=== PATIENT | female | born 1940 | race Caucasian/White ===

== ENCOUNTER → 2016-06-19 | Outpatient (REF) | payer MEDICARE ==
[~2016-06-19] MED LIST: IBUP600T OR; NORCO PO; TYLENOL ES PO; VENL75TA2 PO; Vitamin D PO
== END ==
LOC: M LAB REF 16:40
PROVIDERS: ATTEND Internal Medicine Medical Oncology
DX: C18.9 Malignant neoplasm of colon, unspecified (principal)

== ENCOUNTER → 2016-06-20 | Outpatient (CLI) | payer MEDICARE ==
[~2016-06-20] MED LIST changes: +GASTROGRAFIN SOLUTION 30ML (Q9963) As Ordered ONE; +ISOVUE-370 76% 100ML VIAL (Q9967) As Ordered ONE
--- NOTE | 2016-06-20 13:19 | REP ---
Clinical: History of metastatic colon cancer with chest pain. Technique: Axial contrast enhanced images from the thoracic inlet to the upper abdomen using 100 ml Isovue 370 intravenous contrast material with coronal and sagittal re-formations. Comparison: 10/01/2015. Findings: Mild biapical and right lateral subpleural scarring is unchanged. Lung mandel are otherwise well aerated and clear. No acute consolidation, nodule or mass lesion. No pleural effusion/reaction. No pneumothorax. Tracheobronchial tree is patent. No significant axillary, hilar, or mediastinal adenopathy. Thoracic aorta, heart and pericardium are relatively normal / stable. Small hiatal hernia. Musculoskeletal structures without focal osseous abnormality. Impression: Mild by apical and right subpleural scarring unchanged. No acute mediastinal or pleuroparenchymal process. Stable hiatal hernia. Signed by Tho Gipson MD 06/20/2016 01:11 P
--- NOTE | 2016-06-20 13:26 | REP ---
Clinical: Metastatic colon cancer with abdominal pain. Technique: Axial contrast enhanced images from the lung bases to the pubic symphysis using oral and 100 ml Isovue 370 intravenous contrast material with precontrast and delayed images of the abdomen as well as coronal and sagittal re-formations. Comparison: 10/25/2014. Findings: Lung bases clear. Visualized heart and pericardium stable/normal. Small hiatal hernia again noted. Liver, spleen, pancreas, gallbladder, bilateral adrenal glands and kidneys are normal / stable. Sub centimeter cyst in the posterior segment right lobe of the liver, splenic calcification, and mild hyperplastic changes to the left adrenal gland are all stable. The enteric system is without obstruction or acute inflammatory process. There is evidence for prior resection and anastomosis at the rectosigmoid colon. Pelvis demonstrates normal bladder and evidence for prior hysterectomy. No ascites. No intraperitoneal or retroperitoneal adenopathy. No mass lesion. Musculoskeletal structures demonstrate age-related changes without focal osseous abnormality. Impression: No acute intra-abdominal or pelvic pathology appreciated. Evidence for resection and anastomosis at the rectosigmoid appears stable. No free fluid, adenopathy, or mass lesion. Signed by Tho Gipson MD 06/20/2016 01:18 P
== END ==
LOC: M RAD 11:24
PROVIDERS: ATTEND Internal Medicine Medical Oncology
DX: C18.9 Malignant neoplasm of colon, unspecified (principal); R10.2 Pelvic and perineal pain; R07.89 Other chest pain
CPT/HCPCS: 71260; 74178; Q9963; Q9967

== ENCOUNTER → 2016-12-24 | Outpatient (REF) | payer OTHER, MEDICARE ==
[~2016-12-24] MED LIST changes: -GASTROGRAFIN SOLUTION 30ML (Q9963) As Ordered ONE; -ISOVUE-370 76% 100ML VIAL (Q9967) As Ordered ONE
== END ==
LOC: M LAB REF 12:59
PROVIDERS: ATTEND Internal Medicine Medical Oncology
DX: C34.90 Malignant neoplasm of unspecified part of unspecified bronchus or lung (principal)

== ENCOUNTER → 2017-07-06 | Outpatient (REF) | payer OTHER ==
[2017-07-07 09:13] LABS: CARCINOEMBRYONIC ANTIGEN 2.7 NG/ML (<2.5)
== END ==
LOC: M LAB REF 11:51
DX: C18.9 Malignant neoplasm of colon, unspecified (principal)
CPT/HCPCS: 82378

== ENCOUNTER 2017-07-14 07:00 | Day surgery (SDC) | payer OTHER ==
[2017-07-14] MEDS: LR 1,000 ML IV (07:15)
[2017-07-14] MEDS ORDERED: PROPOFOL 500 MG/50 ML VIAL As Ordered (08:38)
[2017-07-14] MEDS ORDERED: LIDOCAINE 2% INJ 100 MG/5 ML SDV (FOR ANES.) As Ordered (08:47)
== END 2017-07-14 09:47 | disposition home or self-care (01) ==
LOC: M OPP 07:00
DX: Z12.11 Encounter for screening for malignant neoplasm of colon (principal); Z85.038 Personal history of other malignant neoplasm of large intestine; K57.30 Diverticulosis of large intestine without perforation or abscess without bleeding; K31.7 Polyp of stomach and duodenum; R13.10 Dysphagia, unspecified; K21.9 Gastro-esophageal reflux disease without esophagitis; M17.9 Osteoarthritis of knee, unspecified; F41.9 Anxiety disorder, unspecified; F32.9 Major depressive disorder, single episode, unspecified; R51 Headache; J44.9 Chronic obstructive pulmonary disease, unspecified; M54.9 Dorsalgia, unspecified; Z79.899 Other long term (current) drug therapy; Z88.8 Allergy status to other drugs, medicaments and biological substances; N80.9 Endometriosis, unspecified; Z78.0 Asymptomatic menopausal state; Z90.710 Acquired absence of both cervix and uterus; Z85.118 Personal history of other malignant neoplasm of bronchus and lung; Z90.49 Acquired absence of other specified parts of digestive tract; Z87.891 Personal history of nicotine dependence
CPT/HCPCS: G0105

== ENCOUNTER 2018-09-02 13:15 | Day surgery (SDC) | payer MEDICARE ==
[~2018-09-02] VITALS: Ht 165.1 cm; Wt 68.0 kg
[~2018-09-02 13:15] MED LIST changes: +BALANCED SALT IRRIGATION SOLUTION 500ML BAG (FOR OR EYE MACHINE) As Ordered ONE; +CEFUROXIME 1MG/0.1ML INTRACAMERAL INJ As Ordered ONE; +CVS500CA5 PO; +DUOVISC (0.50ML VISCOAT/0.55ML PROVISC) OPHTH KIT As Ordered ONE; +LIDOCAINE 0.75%/EPINEPHRINE 0.025% IN BSS 1ML SYR INTRACAMERAL (OR ONLY) As Ordered ONE; +NAPR220C14 PO; +NEXI40CA PO; +OFLOXACIN 0.3 % (OCUFLOX) OPTH SOL 5ML OS ONE; +PHENYLEPHRINE 2.5% OPHTH SOL 2ML OS ONE; +POVIDONE-IODINE 5% OPHTH PREP SOL 30ML As Ordered ONE; +PRESCAP PO; +PROAAER10 INH; +PROPARACAINE 0.5% OPHTH SOL 15ML OS ONE; +TROPICAMIDE 1% OPHTH SOLN 2ML OS ONE; +TYLE500T78 PO; +VITA100067 PO; +VITA500T3 PO; +VITAD1000T PO
[2018-09-02] MEDS ORDERED: MIDAZOLAM INJ 2 MG/2 ML VIAL (J2250) As Ordered ONE (13:54)
[2018-09-02] MEDS ORDERED: fentaNYL 100 MCG/2 ML INJECTION (J3010) As Ordered ONE (13:54)
[2018-09-02 15:25] VITALS: BP 138/68
--- NOTE | 2018-09-03 07:48 | RO ---
DATE OF PROCEDURE: 09/02/2018 PREOPERATIVE DIAGNOSIS: 1. Visually significant nuclear sclerotic cataract left eye. POSTOPERATIVE DIAGNOSIS: 1. Visually significant nuclear sclerotic cataract left eye. PROCEDURE: 1. Cataract extraction with use of phacoemulsification and placement of intraocular lens, AUT00 22.0 D, left eye. SURGEON: Jose Juan Moy DO CRIMINAL PROFILER: None. ANESTHESIA: Local with monitored anesthesia care (MAC). COMPLICATIONS: None. POSTOPERATIVE CONDITION: Stable. INDICATIONS FOR SURGERY: 1. Blurred vision affecting patients activities of daily living. DESCRIPTION OF PROCEDURE: The patient was seen in the preoperative area and properly identified. The correct operative eye was identified and marked. The patient received topical anesthetic, antibiotics, and topical dilating drops. The patient was then transferred to the operating room. The correct side was re-identified, and a time-out was performed. The eye was prepped and draped in a sterile fashion. The eyelids were isolated with Tegaderm tape, and the lids were held open with an adjustable speculum. A 1.0 mm paracentesis incision was made. Intraocular preservative-free Shugarcaine was then injected into the anterior chamber. Viscoelastic was then injected into the anterior chamber through the paracentesis. Using a 2.4 mm sharp-tipped keratome, the anterior chamber was entered via a temporal clear cornea incision. A continuous curvilinear capsulorrhexis was created with Utrata forceps. Hydrodissection was performed with balanced salt solution (BSS) on a blunt cannula until the nucleus was able to rotate freely. The crystalline lens was phacoemulsified and aspirated. Irrigation/aspiration was used to remove the cortical material. Cohesive viscoelastic was placed into the capsular bag to deepen it. The implant was placed into the capsular bag and allowed to unfold. Placement was confirmed by visualizing the anterior capsulorrhexis. Irrigation/aspiration was used to remove the viscoelastic. The clear corneal incision was hydrated with BSS on a blunt cannula. The lens was well positioned. The incisions were then tested for leaks and found to be negative. The eye was then palpated for appropriate pressure and adjusted accordingly with BSS. The eyelid speculum was then carefully removed. A shield was placed over the eye. The patient tolerated the procedure well and was discharged to the recovery unit in a stable condition.
== END 2018-09-02 15:35 | disposition home or self-care (01) ==
LOC: M SDC 13:15
PROVIDERS: ATTEND Ophthalmology
DX: H25.12 Age-related nuclear cataract, left eye (principal); J44.9 Chronic obstructive pulmonary disease, unspecified; K21.9 Gastro-esophageal reflux disease without esophagitis; F32.9 Major depressive disorder, single episode, unspecified; F41.9 Anxiety disorder, unspecified; Z87.891 Personal history of nicotine dependence; Z88.2 Allergy status to sulfonamides; Z85.038 Personal history of other malignant neoplasm of large intestine; Z92.21 Personal history of antineoplastic chemotherapy; Z79.899 Other long term (current) drug therapy
CPT/HCPCS: 66984; J2250; J3010; V2632

== ENCOUNTER 2018-09-16 09:29 | Day surgery (SDC) | payer MEDICARE ==
[~2018-09-16] VITALS: Ht 165.1 cm; Wt 68.9 kg
[~2018-09-16 09:29] MED LIST changes: +ACETAMINOPHEN 325 MG TAB PO PRN; +OFLOXACIN 0.3 % (OCUFLOX) OPTH SOL 5ML OD ONE; -OFLOXACIN 0.3 % (OCUFLOX) OPTH SOL 5ML OS ONE; +PHENYLEPHRINE 2.5% OPHTH SOL 2ML OD ONE; -PHENYLEPHRINE 2.5% OPHTH SOL 2ML OS ONE; +PROPARACAINE 0.5% OPHTH SOL 15ML OD ONE; -PROPARACAINE 0.5% OPHTH SOL 15ML OS ONE; +TROPICAMIDE 1% OPHTH SOLN 2ML OD ONE; -TROPICAMIDE 1% OPHTH SOLN 2ML OS ONE
[2018-09-16] MEDS ORDERED: MIDAZOLAM INJ 2 MG/2 ML VIAL (J2250) As Ordered ONE (10:53)
[2018-09-16] MEDS ORDERED: fentaNYL 100 MCG/2 ML INJECTION (J3010) As Ordered ONE (10:54)
[2018-09-16 11:50] VITALS: BP 127/61
[2018-09-16] MEDS ORDERED: TRIMETHOBENZAMIDE 300 MG CAP PO PRN (12:00)
[2018-09-16] MEDS ORDERED: ONDANSETRON 4MG/2ML VIAL (J2405) IV PRN (12:00)
--- NOTE | 2018-09-17 08:27 | RO ---
DATE OF PROCEDURE: 09/16/2018 PREOPERATIVE DIAGNOSIS: 1. Visually significant nuclear sclerotic cataract right eye. POSTOPERATIVE DIAGNOSIS: 1. Visually significant nuclear sclerotic cataract right eye. PROCEDURE: 1. Cataract extraction with use of phacoemulsification and placement of intraocular lens, AU00T0, 22.0 D, right eye. SURGEON: Jose Juan Moy DO CLIENT SERVICE EXECUTIVE: None. ANESTHESIA: Local with monitored anesthesia care (MAC). COMPLICATIONS: None. POSTOPERATIVE CONDITION: Stable. INDICATIONS FOR SURGERY: 1. Blurred vision affecting patients activities of daily living. DESCRIPTION OF PROCEDURE: The patient was seen in the preoperative area and properly identified. The correct operative eye was identified and marked. The patient received topical anesthetic, antibiotics, and topical dilating drops. The patient was then transferred to the operating room. The correct side was re-identified, and a time-out was performed. The eye was prepped and draped in a sterile fashion. The eyelids were isolated with Tegaderm tape, and the lids were held open with an adjustable speculum. A 1.0 mm paracentesis incision was made. Intraocular preservative-free Shugarcaine was then injected into the anterior chamber. Viscoelastic was then injected into the anterior chamber through the paracentesis. Using a 2.4 mm sharp-tipped keratome, the anterior chamber was entered via a temporal clear cornea incision. A continuous curvilinear capsulorrhexis was created with Utrata forceps. Hydrodissection was performed with balanced salt solution (BSS) on a blunt cannula until the nucleus was able to rotate freely. The crystalline lens was phacoemulsified and aspirated. Irrigation/aspiration was used to remove the cortical material. Cohesive viscoelastic was placed into the capsular bag to deepen it. The implant was placed into the capsular bag and allowed to unfold. Placement was confirmed by visualizing the anterior capsulorrhexis. Irrigation/aspiration was used to remove the viscoelastic. The clear corneal incision was hydrated with BSS on a blunt cannula. The lens was well positioned. The incisions were then tested for leaks and found to be negative. The eye was then palpated for appropriate pressure and adjusted accordingly with BSS. The eyelid speculum was then carefully removed. A shield was placed over the eye. The patient tolerated the procedure well and was discharged to the recovery unit in a stable condition. edited: 09/20/2018 1411 meghna DUNN
== END 2018-09-16 12:11 | disposition home or self-care (01) ==
LOC: M SDC 09:29
PROVIDERS: ATTEND Ophthalmology
DX: H25.11 Age-related nuclear cataract, right eye (principal); E05.90 Thyrotoxicosis, unspecified without thyrotoxic crisis or storm; J44.9 Chronic obstructive pulmonary disease, unspecified; K21.9 Gastro-esophageal reflux disease without esophagitis; F32.9 Major depressive disorder, single episode, unspecified; Z88.2 Allergy status to sulfonamides; Z79.899 Other long term (current) drug therapy; Z85.038 Personal history of other malignant neoplasm of large intestine
CPT/HCPCS: 66984; J2250; J3010; V2632

== ENCOUNTER → 2018-12-10 | Outpatient (REF) | payer MEDICARE ==
[~2018-12-10] MED LIST changes: -ACETAMINOPHEN 325 MG TAB PO PRN; -BALANCED SALT IRRIGATION SOLUTION 500ML BAG (FOR OR EYE MACHINE) As Ordered ONE; -CEFUROXIME 1MG/0.1ML INTRACAMERAL INJ As Ordered ONE; +CHOL100029 PO; +CYAN500T8 PO; -DUOVISC (0.50ML VISCOAT/0.55ML PROVISC) OPHTH KIT As Ordered ONE; -LIDOCAINE 0.75%/EPINEPHRINE 0.025% IN BSS 1ML SYR INTRACAMERAL (OR ONLY) As Ordered ONE; -OFLOXACIN 0.3 % (OCUFLOX) OPTH SOL 5ML OD ONE; -PHENYLEPHRINE 2.5% OPHTH SOL 2ML OD ONE; -POVIDONE-IODINE 5% OPHTH PREP SOL 30ML As Ordered ONE; -PROPARACAINE 0.5% OPHTH SOL 15ML OD ONE; -TROPICAMIDE 1% OPHTH SOLN 2ML OD ONE; -VITA500T3 PO; -VITAD1000T PO
[2018-12-10 14:08] LABS: BASO % 0.6 % (0.0-1.0); HEMATOCRIT 43.5 % (36.0-47.0); HEMOGLOBIN 14.1 g/dl (12.0-15.5); LYMPH # 1.6 10^3/uL (1.5-5.0); LYMPH % 25.1 % (24.0-44.0); MEAN CORPUSCULAR HEMOGLOBIN 29.1 pg (27.0-33.0); MEAN CORPUSCULAR HGB CONC 32.4 g/dl (32.0-36.5); MEAN CORPUSCULAR VOLUME 89.7 fl (80.0-96.0); MONO # 0.4 10^3/uL (0.0-0.8); MONO % 5.6 % (0.0-5.0); NEUTROPHILS # 4.4 10^3/uL (1.5-8.5); NEUTROPHILS % 68.5 % (36.0-66.0); PLATELET COUNT, AUTOMATED 298 10^3/uL (150-450); RED BLOOD COUNT 4.85 10^6/uL (4.00-5.40); WHITE BLOOD COUNT 6.4 10^3/uL (4.0-10.0)
[2018-12-10 14:27] LABS: ALBUMIN 4.1 GM/DL (3.2-5.2); ALT/SGPT 42 U/L (12-78); BILIRUBIN,TOTAL 0.4 MG/DL (0.2-1.0); BLOOD UREA NITROGEN 15 MG/DL (7-18); CARBON DIOXIDE LEVEL 27 MEQ/L (21-32); CHLORIDE LEVEL 105 MEQ/L (98-107); CREATININE FOR GFR 0.67 MG/DL (0.55-1.30); FOLATE > 24.0 NG/ML; GLOMERULAR FILTRATION RATE > 60.0 (>39); GLUCOSE, FASTING 97 MG/DL (70-100); POTASSIUM SERUM 4.4 MEQ/L (3.5-5.1); RHEUMATOID FACTOR QUANT < 10.0 IU/ML (<15.0); SODIUM LEVEL 140 MEQ/L (136-145); TOTAL PROTEIN 7.1 GM/DL (6.4-8.2); VITAMIN B12 LEVEL 386 PG/ML
[2018-12-10 14:54] LABS: ERYTHROCYTE SEDIMENTATION RATE 21 mm/hr (0-30)
[2018-12-10 15:38] LABS: HEMOGLOBIN A1c 5.5 %
[2018-12-14 10:18] LABS: DRVV SCREEN 40.2 SEC
[2018-12-14 13:41] LABS: ALBUMIN % 60.1 % (55.8-66.1); ALPHA-1-GLOBULIN % 4.3 % (2.9-4.9); ALPHA-2-GLOBULINS % 10.1 % (7.1-11.8); BETA-1-GLOBULINS % 6.4 % (4.7-7.2)
[2018-12-14 13:42] LABS: ALBUMIN 4.27 GM/DL (3.29-5.55); ALPHA-1-GLOBULINS 0.31 GM/DL (0.17-0.41); ALPHA-2-GLOBULINS 0.72 GM/DL (0.42-0.99); BETA-1-GLOBULINS 0.45 GM/DL (0.28-0.60); BETA-2-GLOBULINS 0.38 GM/DL (0.19-0.55); BETA-2-GLOBULINS % 5.4 % (3.2-6.5); GAMMA GLOBULIN % 13.7 % (11.1-18.8); GAMMA GLOBULINS 0.97 GM/DL (0.65-1.58)
[2018-12-15 14:19] LABS: ANCA-ATYPICAL <1:20 titer (Neg:<1:20); ANTI DS-DNA AB <1:10 titer (.); ANTINUCLEAR ANTIBODIES DIRECT Negative (Negative); CYTOPLASMIC NEUTROP AB ANCA-C <1:20 titer (Neg:<1:20); PERINUCLEAR AB ANCA-P <1:20 titer (Neg:<1:20); SJOGREN'S ANTI SS-A <0.2 AI (0.0-0.9); SJOGREN'S ANTI SS-B <0.2 AI (0.0-0.9); VITAMIN B1 LEVEL WHOLE BLOOD 184.1 nmol/L (66.5-200.0); VITAMIN B6,PYRIDOXAL PHOSPHATE 7.5 ug/L (2.0-32.8); VITAMIN E(GAMMA TOCOPHEROL) 0.8 mg/L (0.5-4.9)
== END ==
LOC: M LABNEURO 10:09
PROVIDERS: ATTEND Psychiatry & Neurology Neurology
DX: M79.2 Neuralgia and neuritis, unspecified (principal); Z79.899 Other long term (current) drug therapy

== ENCOUNTER → 2019-01-11 | Outpatient (CLI) | payer MEDICARE ==
[~2019-01-11] MED LIST changes: +GASTROGRAFIN SOLUTION 30ML (Q9963) As Ordered ONE; +ISOVUE-370 76% 100ML VIAL (Q9967) As Ordered ONE
--- NOTE | 2019-01-12 13:42 | REP ---
REASON FOR EXAM: History of lung cancer. All priors were reviewed, the latest is 06/20/2016. CONTRAST: 100 mL Isovue 370. Mediastinum and pulmonary sedrick are stable. There is no mass or adenopathy. There are no pleural or pericardial effusions. The imaged osseous structures are unchanged. Evaluation of the lung mandel again shows biapical pleuroparenchymal scarring status quo. There are no new abnormal nodules, masses, or opacities. The lung mandel are stable. IMPRESSION: No acute disease or significant change with findings as described above. Electronically Signed by Addi Mace DO 01/12/2019 04:29 P
--- NOTE | 2019-01-12 13:45 | REP ---
REASON: History of colon cancer. Latest prior for comparison 06/20/2016. CONTRAST: 100 mL Isovue 370. The liver, gallbladder, spleen, pancreas, adrenal glands, and kidneys are unchanged. There is mild stable left adrenal gland nodularity. The abdominal aorta and paraaortic regions are unchanged. There is no adenopathy. The imaged bowel loops and their mesenteries are unremarkable. There is no free fluid or free air. There is no evidence of an intra-abdominal mass or adenopathy. Bone window technique throughout the exam shows spinal degenerative changes status quo. IMPRESSION: No acute intra-abdominal disease or significant change compared to the prior exam. Electronically Signed by Addi Mace DO 01/12/2019 04:29 P
== END ==
LOC: M RAD 16:05
PROVIDERS: ATTEND Internal Medicine Hematology & Oncology
DX: C18.9 Malignant neoplasm of colon, unspecified (principal); C78.01 Secondary malignant neoplasm of right lung; E27.9 Disorder of adrenal gland, unspecified
CPT/HCPCS: 71260; 74160; Q9963; Q9967

== ENCOUNTER → 2019-05-11 | Outpatient (REF) | payer MEDICARE ==
[~2019-05-11] MED LIST changes: -GASTROGRAFIN SOLUTION 30ML (Q9963) As Ordered ONE; -ISOVUE-370 76% 100ML VIAL (Q9967) As Ordered ONE
== END ==
LOC: M LAB REF 16:40
PROVIDERS: ATTEND Internal Medicine
DX: M25.50 Pain in unspecified joint (principal)

== ENCOUNTER 2019-12-01 13:55 | Emergency (ER) | payer MEDICARE ==
[~2019-12-01] VITALS: Ht 165.1 cm; Wt 68.2 kg
[2019-12-01] MEDS ORDERED: VENL75CA47 PO (14:04)
[2019-12-01] MEDS ORDERED: LANS15CA3 PO (14:04)
[2019-12-01 15:43] LABS: BASO % 0.4 % (0.0-1.0); EOS % 0.2 % (0.0-3.0); HEMATOCRIT 42.1 % (36.0-47.0); HEMOGLOBIN 13.8 g/dl (12.0-15.5); LYMPH # 2.4 10^3/uL (1.5-5.0); LYMPH % 24.8 % (24.0-44.0); MEAN CORPUSCULAR HEMOGLOBIN 28.5 pg (27.0-33.0); MEAN CORPUSCULAR HGB CONC 32.8 g/dl (32.0-36.5); MONO % 10.2 % (0.0-5.0); NEUTROPHILS # 6.2 10^3/uL (1.5-8.5); PLATELET COUNT, AUTOMATED 287 10^3/uL (150-450); RED BLOOD COUNT 4.84 10^6/uL (4.00-5.40); WHITE BLOOD COUNT 9.7 10^3/uL (4.0-10.0)
[2019-12-01 16:16] LABS: ALBUMIN 3.9 GM/DL (3.2-5.2); ALT/SGPT 27 U/L (12-78); BILIRUBIN,DIRECT 0.1 MG/DL (0.0-0.2); BILIRUBIN,TOTAL 0.5 MG/DL (0.2-1.0); BLOOD UREA NITROGEN 13 MG/DL (7-18); CARBON DIOXIDE LEVEL 30 MEQ/L (21-32); CHLORIDE LEVEL 101 MEQ/L (98-107); GLOMERULAR FILTRATION RATE > 60.0 (>39); GLUCOSE, FASTING 87 MG/DL (70-100); LIPASE 171 U/L (73-393); POTASSIUM SERUM 3.7 MEQ/L (3.5-5.1); SODIUM LEVEL 135 MEQ/L (136-145); TOTAL PROTEIN 7.4 GM/DL (6.4-8.2)
[2019-12-01] MEDS ORDERED: ISOVUE-370 76% 100ML VIAL As Ordered ONE (16:24)
--- NOTE | 2019-12-01 17:13 | REPVR ---
PROCEDURE INFORMATION: Exam: CT Head Without Contrast Exam date and time: 12/01/2019 4:47 PM Age: 79 years old Clinical indication: Injury or trauma; Fall; Initial encounter; Blunt trauma (contusions or hematomas); Additional info: Head injury; S/P fall TECHNIQUE: Imaging protocol: Computed tomography of the head without contrast. Radiation optimization: All CT scans at this facility use at least one of these dose optimization techniques: automated exposure control; mA and/or kV adjustment per patient size (includes targeted exams where dose is matched to clinical indication); or iterative reconstruction. COMPARISON: No relevant prior studies available. FINDINGS: Brain: No acute intracranial hemorrhage, cerebral edema, or midline shift. Ventricles: No hydrocephalus. Bones/joints: No acute fracture. Sinuses: No acute sinusitis. Mastoid air cells: Visualized mastoid air cells are well aerated. Orbits: The included orbital structures are unremarkable. Soft tissues: Unremarkable. Vasculature: Intravascular contrast is noted from a preceding abdominal CT. IMPRESSION: No acute intracranial abnormality. Electronically signed by: Berlin Rolle On 12/01/2019 17:13:00 PM
--- NOTE | 2019-12-01 17:16 | REPVR ---
PROCEDURE INFORMATION: Exam: CT Abdomen And Pelvis With Contrast Exam date and time: 12/01/2019 3:41 PM Age: 79 years old Clinical indication: Abdominal pain; Additional info: Abdominal pain; HX of CA TECHNIQUE: Imaging protocol: Computed tomography of the abdomen and pelvis with intravenous contrast. Radiation optimization: All CT scans at this facility use at least one of these dose optimization techniques: automated exposure control; mA and/or kV adjustment per patient size (includes targeted exams where dose is matched to clinical indication); or iterative reconstruction. Contrast material: ISOVUE 370; Contrast volume: 100 ml; Contrast route: INTRAVENOUS (IV); COMPARISON: CT ABD PELVIS W/O FOL BY WIT 06/20/2016 12:46 PM FINDINGS: Pleural space: There is focal pleural thickening along the right lateral hemithorax series 301, image 1 which is only partially imaged. It is stable in appearance in comparison to the chest CT of 06/20/2016 and is therefore likely benign. There is stable right hilar lymphadenopathy. Mediastinal space: There is a hiatal hernia. Liver: There are no focal liver lesions. Gallbladder and bile ducts: The gallbladder is unremarkable. Pancreas: The pancreas is normal. Spleen: Spleen is normal appearance other than a probable calcified granuloma. Adrenals: Stable enlargement of the left adrenal gland is apparent without change in appearance in comparison to the 06/20/2016 CT. The right adrenal gland is normal appearance. Kidneys and ureters: The kidneys are unremarkable. Stomach and bowel: The stomach is decompressed and not well assessed.There is no evidence of intestinal obstruction. Surgical anastomosis is seen in the sigmoid colon. Appendix: No evidence of appendicitis. Intraperitoneal space: Unremarkable. No free air. No significant fluid collection. Vasculature: There is no evidence of an infrarenal abdominal aortic aneurysm. The arteries demonstrates diffuse moderate atherosclerotic calcification. Lymph nodes: See "Pleural space" finding. Bladder: There is an abnormal appearance of the urinary bladder with ventral extension superiorly to the left of midline which could be due to congenital anomaly. Is stable in comparison to prior studies. Reproductive: Hysterectomy. Bones/joints: No lytic or sclerotic bone lesions are present other than sclerosis associated with degeneration. Soft tissues: Unremarkable. IMPRESSION: No evidence of metastatic disease. No evidence of urinary tract obstruction or bowel obstruction. Electronically signed by: Katie Singleton On 12/01/2019 17:15:47 PM
--- NOTE | 2019-12-01 17:23 | REPVR ---
PROCEDURE INFORMATION: Exam: CT Cervical Spine Without Contrast Exam date and time: 12/01/2019 4:47 PM Age: 79 years old Clinical indication: Injury or trauma; Fall; Initial encounter; Blunt trauma; Additional info: Head injury; S/P fall TECHNIQUE: Imaging protocol: Computed tomography images of the cervical spine without contrast. Radiation optimization: All CT scans at this facility use at least one of these dose optimization techniques: automated exposure control; mA and/or kV adjustment per patient size (includes targeted exams where dose is matched to clinical indication); or iterative reconstruction. COMPARISON: No relevant prior studies available. FINDINGS: Vertebrae: No acute fracture. Normal alignment. Diffuse degeneration of the uncovertebral and facet joints, disc space narrowing and endplate degeneration. C2-C3: No significant spinal canal stenosis. Moderate narrowing of the left neural foramen. C3-C4: No spinal canal stenosis. Mild narrowing of the left neural foramen. C4-C5: No spinal canal stenosis. Moderate right and mild left neural foraminal narrowing. C5-C6: No significant spinal canal stenosis or neural foraminal narrowing. C6-C7: No significant spinal canal stenosis or neural foraminal narrowing. C7-T1: No significant spinal canal stenosis or neural foraminal narrowing. Soft tissues: No prevertebral soft tissue swelling. Lungs: Pleuroparenchymal scarring at the lung apices. IMPRESSION: No acute fracture or dislocation in the cervical spine. Electronically signed by: Katie Singleton On 12/01/2019 17:23:14 PM
--- NOTE | 2019-12-01 22:44 | REPVR ---
PROCEDURE INFORMATION: Exam: CT Head Without Contrast Exam date and time: 12/01/2019 10:29 PM Age: 79 years old Clinical indication: Injury or trauma; Fall; Initial encounter; Blunt trauma (contusions or hematomas); Additional info: Fall injury; S/P iv contrast TECHNIQUE: Imaging protocol: Computed tomography of the head without contrast. Radiation optimization: All CT scans at this facility use at least one of these dose optimization techniques: automated exposure control; mA and/or kV adjustment per patient size (includes targeted exams where dose is matched to clinical indication); or iterative reconstruction. COMPARISON: CT Head without contrast 12/01/2019 4:47 PM FINDINGS: Brain: There is no acute cortical infarction, intracranial hemorrhage or mass. Ventricles: The ventricles appear mildly enlarged, but not out of proportion to the degree of parenchymal volume loss. Bones/joints: Unremarkable. No acute fracture. Sinuses: There is no significant mucoperiosteal thickening or air-fluid levels in the paranasal sinuses. Mastoid air cells: The middle ear cavities and mastoid air cells are clear. Vasculature: Atherosclerosis. Soft tissues: Unremarkable. IMPRESSION: No acute intracranial findings. Electronically signed by: Katie Singleton On 12/01/2019 22:43:42 PM
[2019-12-01 23:14] VITALS: BP 129/75
[2020-01-04] MEDS ORDERED: CULT10CA4 PO (10:53)
[2020-01-04] MEDS ORDERED: MAALOX PO (10:55)
== END 2019-12-01 23:24 | disposition home or self-care (01) ==
LOC: M ED 13:55
DX: K59.00 Constipation, unspecified (principal); S09.90XA Unspecified injury of head, initial encounter; X58.XXXA Exposure to other specified factors, initial encounter; Y92.89 Other specified places as the place of occurrence of the external cause; J44.9 Chronic obstructive pulmonary disease, unspecified; F33.9 Major depressive disorder, recurrent, unspecified; Z79.899 Other long term (current) drug therapy; Z88.1 Allergy status to other antibiotic agents; Z88.2 Allergy status to sulfonamides
CPT/HCPCS: 36415; 70450; 72125; 74177; 80048; 80076; 81001; 83690; 85025; 87086; 99284; Q9967

== ENCOUNTER → 2019-12-28 | Outpatient (CLI) | payer MEDICARE ==
[~2019-12-28] MED LIST changes: +CULT10CA4 PO; +LANS15CA3 PO; +MAALOX PO; +VENL75CA47 PO
--- NOTE | 2020-01-03 08:45 | REP ---
CHEST CT WITHOUT CONTRAST HISTORY: Lung cancer. Colon cancer and lung cancer. Greater than 50-pack year smoking history. COMPARISON: Chest CT study 01/11/2019 and 06/20/2016. CT FINDINGS: There is no evidence of pleural or pericardial effusion. Vascular calcification is noted. Adrenal glands are normal. Visualized upper abdominal structures show no significant abnormality. Stable mediastinal lymph nodes are seen. No adenopathy. There is left apical and left basilar linear fibrosis. No pulmonary mass or significant nodule is appreciated. There appear to be some surgical clips in the right hilar region. Mild emphysematous changes are present. No endobronchial lesion is seen. IMPRESSION: Evidence of chronic obstructive pulmonary disease (COPD) with areas of fibrosis. No evidence of significant lung nodule, mass, or adenopathy. MTDD
== END ==
LOC: M RAD 12:48
PROVIDERS: ATTEND Internal Medicine Medical Oncology
DX: C34.90 Malignant neoplasm of unspecified part of unspecified bronchus or lung (principal)

== ENCOUNTER 2020-07-24 07:39 | Day surgery (SDC) | payer OTHER ==
[~2020-07-24] VITALS: Ht 165.1 cm; Wt 70.3 kg
[~2020-07-24 07:39] MED LIST changes: +CALC600T57 PO; +CYAN500T14 PO; -CYAN500T8 PO; +META0.52 PO; +OMEP-218
[2020-07-24] MEDS ORDERED: NS 1,000 ML IV ONE (08:05)
[2020-07-24] MEDS ORDERED: LIDOCAINE 2% 100MG/5ML SDV (FOR ANES.) As Ordered ONE (08:47)
[2020-07-24] MEDS ORDERED: propofoL 200 MG/20 ML VIAL As Ordered ONE (08:47)
--- NOTE | 2020-07-24 09:17 | ROOR ---
Patient Name: Maria E Pizarro Procedure Date: 07/24/2020 8:58 AM Date of : 1940 Age: 80 Room: [facility] Gender: Female Note Status: Finalized Procedure: Colonoscopy Indications: High risk colon cancer surveillance: Personal history of colon cancer Providers: DO Koffi Ugalde MD: Maribel Eaton NP Requesting Provider: Medicines: Propofol per Anesthesia Complications: No immediate complications. Procedure: Pre-Anesthesia Assessment: - Prior to the procedure, a History and Physical was performed, and patient medications and allergies were reviewed. The patient is competent. The risks and benefits of the procedure and the sedation options and risks were discussed with the patient. All questions were answered and informed consent was obtained. Patient identification and proposed procedure were verified by the physician, the nurse, the anesthesiologist and the driver service technician in the endoscopy suite. Mental Status Examination: alert and oriented. Airway Examination: normal oropharyngeal airway and neck mobility. Respiratory Examination: clear to auscultation. CV Examination: normal. Prophylactic Antibiotics: The patient does not require prophylactic antibiotics. Prior Anticoagulants: The patient has taken no previous anticoagulant or antiplatelet agents. ASA Grade Assessment: II - A patient with mild systemic disease. After reviewing the risks and benefits, the patient was deemed in satisfactory condition to undergo the procedure. The anesthesia plan was to use monitored anesthesia care (MAC). Immediately prior to administration of medications, the patient was re-assessed for adequacy to receive sedatives. The heart rate, respiratory rate, oxygen saturations, blood pressure, adequacy of pulmonary ventilation, and response to care were monitored throughout the procedure. The physical status of the patient was re-assessed after the procedure. The Colonoscope was introduced through the anus and advanced to the cecum, identified by appendiceal orifice and ileocecal valve. The colonoscopy was performed without difficulty. The patient tolerated the procedure well. Findings: Non-bleeding internal hemorrhoids were found during retroflexion. The hemorrhoids were Grade I (internal hemorrhoids that do not prolapse). A few small-mouthed diverticula were found in the sigmoid colon, descending colon and transverse colon. Impression: - Non-bleeding internal hemorrhoids. - Diverticulosis in the sigmoid colon, in the descending colon and in the transverse colon. - No specimens collected. Recommendation: - Patient has a contact number available for emergencies. The signs and symptoms of potential delayed complications were discussed with the patient. Return to normal activities tomorrow. Written discharge instructions were provided to the patient. - Repeat colonoscopy in 3 - 5 years for surveillance based on personal history of colon cancer. - Return to my office PRN. Procedure Code(s): --- Professional --- G0105, Colorectal cancer screening; colonoscopy on individual at high risk Diagnosis Code(s): --- Professional --- Z85.038, Personal history of other malignant neoplasm of large intestine K64.0, First degree hemorrhoids K57.30, Diverticulosis of large intestine without perforation or abscess without bleeding CPT copyright 2019 [employer]. All rights reserved. The codes documented in this report are preliminary and upon long filler cigar roller machine review may be revised to meet current compliance requirements. Jon Dutta DO 07/24/2020 9:17:22 AM Electronically signed by Jon Dutta DO Number of Addenda: 0 Note Initiated On: 07/24/2020 8:58 AM Estimated Blood Loss: Estimated blood loss: none.
[2020-07-24 09:35] VITALS: BP 130/84
== END 2020-07-24 09:55 | disposition home or self-care (01) ==
LOC: M OPP 07:39
PROVIDERS: ATTEND Surgery
DX: Z12.11 Encounter for screening for malignant neoplasm of colon (principal); Z85.038 Personal history of other malignant neoplasm of large intestine; K57.30 Diverticulosis of large intestine without perforation or abscess without bleeding; K64.0 First degree hemorrhoids; K21.9 Gastro-esophageal reflux disease without esophagitis; J44.9 Chronic obstructive pulmonary disease, unspecified; Z79.899 Other long term (current) drug therapy; Z88.2 Allergy status to sulfonamides; Z85.118 Personal history of other malignant neoplasm of bronchus and lung; Z92.21 Personal history of antineoplastic chemotherapy

== ENCOUNTER → 2020-10-10 | Outpatient (CLI) | payer OTHER ==
--- NOTE | 2020-10-10 16:00 | REPMRS ---
Patient History Patient has history of colorectal cancer at age 71 and is nulliparous.The patient states she has not had a clinical breast exam in over a year. Family history of colorectal cancer at age 75 in father. Patient states no breast complaints today. Patient has signed MRS History Sheet. Digital Woman Screen Mammo: October 10, 2020 - Exam #: [id number] Bilateral CC and MLO view(s) were taken. Technologist: Latonya Dickens Technologist Prior study comparison: July 27, 2019, bilateral digital mammo screening bilat, performed at [facility] [employer]. May 10, 2018, bilateral digital mammo screening bilat, performed at [facility] [employer]. April 07, 2017, bilateral digital mammo screening bilat, performed at [facility]. FINDINGS: The breast tissue is heterogeneously dense. This may lower the sensitivity of mammography. The Volpara volumetric breast density category is: C. There is a moderate amount of heterogeneously dense fibroglandular tissue which is fairly symmetric. There is no interval development of dominant mass, architectural distortion, or grouped microcalcification typical of malignancy. There has been no change in the appearance of the mammogram from the prior studies. 3-D tomosynthesis shows no additional findings. Assessment: BI-RADS/ACR category 1 mammogram. Negative Mammogram. Recommendation Routine screening mammogram of both breasts in 1 year (for women over age 40). This patient's [facility] Lifetime Breast Cancer RIsk is estimated at 2.4 %. This mammogram was interpreted with the aid of an FDA-approved computer-aided dectection system. Electronically Signed By: Brad Harris MD 10/10/20 [id number]
== END ==
LOC: M WHC 13:05
PROVIDERS: ATTEND Physician Assistant Medical
DX: Z12.31 Encounter for screening mammogram for malignant neoplasm of breast (principal)

== ENCOUNTER → 2020-11-06 | Outpatient (REF) | payer OTHER ==
[2020-11-06 17:36] LABS: FOLATE 19.3 NG/ML
== END ==
LOC: M LAB REF 16:20
PROVIDERS: ATTEND Physician Assistant Medical
DX: R41.3 Other amnesia (principal)

== ENCOUNTER → 2021-01-07 | Outpatient (CLI) | payer OTHER ==
[~2021-01-07] MED LIST changes: +D 50CAP2 PO; +EQL50TAB2 PO; -OMEP-218; +OMEP-218 PO
--- NOTE | 2021-01-09 06:28 | REP ---
INDICATION: LUNG METS COMPARISON: 12/28/2019 TECHNIQUE: Axial noncontrast images from the thoracic inlet to the upper abdomen with coronal and sagittal reformations. This CT examination was performed using the following dose reduction techniques: Automated exposure control, adjustment of mA and/or kv according to the patient's size, and use of iterative reconstruction technique. FINDINGS: The bilateral lung mandel again demonstrate age-related interstitial and emphysematous changes with scattered fibro linear scarring and mild bronchiectasis. Patient appears to be status post right middle lobe resection. No acute consolidation, suspicious nodule or mass. No effusion. No pneumothorax. No evidence for significant adenopathy. Further evaluation of the mediastinum demonstrates stable atherosclerotic changes to the thoracic aorta and coronary arteries without aortic aneurysm or cardiomegaly. No pericardial effusion noted. Small hiatal hernia at the gastroesophageal junction again identified. Musculoskeletal structures demonstrate age-related changes without acute osseous abnormality. IMPRESSION: Chronic interstitial and emphysematous changes along with evidence for prior right middle lobe resection. No acute mediastinal or pleuroparenchymal process. Specifically, no evidence for recurrence or metastatic disease. <Electronically signed by Tho Gipson > 01/09/21 0624
== END ==
LOC: M PLAIMG 10:57
PROVIDERS: ATTEND Nurse Practitioner Adult Health
DX: C78.00 Secondary malignant neoplasm of unspecified lung (principal); J43.9 Emphysema, unspecified; J84.9 Interstitial pulmonary disease, unspecified; K44.9 Diaphragmatic hernia without obstruction or gangrene; I70.0 Atherosclerosis of aorta; I25.10 Atherosclerotic heart disease of native coronary artery without angina pectoris; Z90.2 Acquired absence of lung [part of]

== ENCOUNTER → 2021-10-18 | Outpatient (CLI) | payer MEDICARE, OTHER, SELFPAY ==
[~2021-10-18] MED LIST changes: +OMEP-173 PO; -OMEP-218 PO
== END ==
LOC: M WHC 07:32
PROVIDERS: ATTEND Internal Medicine
DX: Z12.31 Encounter for screening mammogram for malignant neoplasm of breast (principal)

== ENCOUNTER → 2022-02-11 | Outpatient (CLI) | payer MEDICARE, OTHER ==
[~2022-02-11] MED LIST changes: +B CO1CAP4 PO
== END ==
LOC: M RAD 10:39
PROVIDERS: ATTEND Internal Medicine Pulmonary Disease
DX: Z12.2 Encounter for screening for malignant neoplasm of respiratory organs (principal); Z87.891 Personal history of nicotine dependence; I70.0 Atherosclerosis of aorta; I25.10 Atherosclerotic heart disease of native coronary artery without angina pectoris; M51.34 Other intervertebral disc degeneration, thoracic region; J43.2 Centrilobular emphysema; J84.9 Interstitial pulmonary disease, unspecified

== ENCOUNTER → 2022-06-19 | Outpatient (CLI) | payer OTHER | LOC: M LAB 10:52 | PROVIDERS: ATTEND Internal Medicine | DX: R00.2 Palpitations (principal) ==

== ENCOUNTER → 2022-10-20 | Outpatient (CLI) | payer OTHER | LOC: M WHC 09:40 | PROVIDERS: ATTEND Physician Assistant Medical | DX: Z12.31 Encounter for screening mammogram for malignant neoplasm of breast (principal); M85.89 Other specified disorders of bone density and structure, multiple sites ==

== ENCOUNTER → 2023-04-03 | Outpatient (CLI) | payer OTHER ==
[~2023-04-03] MED LIST changes: +ALBU8.5H INH; +CALC600T60 PO; +FLUT1BLS8 INH; +VENL37.598 PO
== END ==
LOC: M RAD 16:27
PROVIDERS: ATTEND Physician Assistant Medical
DX: M17.11 Unilateral primary osteoarthritis, right knee (principal)

== ENCOUNTER → 2023-04-28 | Outpatient (CLI) | payer OTHER | LOC: M RAD 16:05 | PROVIDERS: ATTEND Internal Medicine Pulmonary Disease | DX: J43.9 Emphysema, unspecified (principal) ==

== ENCOUNTER → 2023-10-26 | Outpatient (CLI) | payer OTHER ==
[~2023-10-26] MED LIST changes: +CRAN500C11 PO; -CVS500CA5 PO
== END ==
LOC: M WHC 07:57
PROVIDERS: ATTEND Physician Assistant Medical
DX: Z12.31 Encounter for screening mammogram for malignant neoplasm of breast (principal)

== ENCOUNTER → 2024-02-08 | Outpatient (CLI) | payer OTHER ==
[~2024-02-08] MED LIST changes: -CRAN500C11 PO; +CVS500CA5 PO; +VALA500T5; +VITAMIN D PO
== END ==
LOC: M RAD 14:15
PROVIDERS: ATTEND Physician Assistant Medical
DX: H53.8 Other visual disturbances (principal); I65.23 Occlusion and stenosis of bilateral carotid arteries

== ENCOUNTER → 2024-06-07 | Outpatient (CLI) | payer MEDICARE ==
[2024-06-07 15:19] LABS: BASO % 0.6 % (0.0-1.0); HEMATOCRIT 40.4 % (36.0-47.0); HEMOGLOBIN 13.3 g/dl (12.0-15.5); LYMPH # 1.6 10^3/uL (1.5-5.0); LYMPH % 25.8 % (24.0-44.0); MEAN CORPUSCULAR HEMOGLOBIN 30.4 pg (27.0-33.0); MEAN CORPUSCULAR HGB CONC 32.9 g/dl (32.0-36.5); MEAN CORPUSCULAR VOLUME 92.4 fl (80.0-96.0); MONO # 0.5 10^3/uL (0.0-0.8); MONO % 8.2 % (2.0-8.0); NEUTROPHILS % 65.1 % (36.0-66.0); PLATELET COUNT, AUTOMATED 262 10^3/uL (150-450); RED BLOOD COUNT 4.37 10^6/uL (4.00-5.40); WHITE BLOOD COUNT 6.2 10^3/uL (4.0-10.0)
[2024-06-07 15:43] LABS: ALBUMIN 3.6 G/DL (3.2-5.2); ALKALINE PHOSPHATASE 90 U/L (35-104); ALT/SGPT 17 U/L (7.0-40); AST/SGOT 22 U/L (<34); BILIRUBIN,TOTAL 0.5 MG/DL (0.3-1.2); BLOOD UREA NITROGEN 15 MG/DL (9-23); CARBON DIOXIDE LEVEL 29 MMOL/L (20-31); CHLORIDE LEVEL 104 MMOL/L (98-107); CREATININE FOR GFR 0.68 MG/DL (0.55-1.30); GLOMERULAR FILTRATION RATE > 60.0 (>32); GLUCOSE, FASTING 76 MG/DL (74-106); POTASSIUM SERUM 4.4 MMOL/L (3.5-5.1); SODIUM LEVEL 140 MMOL/L (136-145); TOTAL PROTEIN 6.8 G/DL (5.7-8.2)
[2024-06-07 15:45] LABS: FOLATE > 24.0 NG/ML (>5.4); THYROID STIMULATING HORMONE 3.687 uIU/ML (0.55-4.78); VITAMIN B12 LEVEL 825 PG/ML (211-911)
[2024-06-07 15:52] LABS: HEMOGLOBIN A1c 5.1 % (4.0-6.0)
[2024-06-08 09:22] LABS: T P ELECTROPHORESIS SO 6.7 g/dL (6.1-8.1)
[2024-06-09 07:26] LABS: ALBUMIN SPEP 4.2 g/dL (3.8-4.8); ALPHA-1-GLOBULINS SO 0.3 g/dL (0.2-0.3); ALPHA-2-GLOBULINS SO 0.6 g/dL (0.5-0.9); BETA 2 GLOBULIN 0.3 g/dL (0.2-0.5); BETA-GLOBULIN SO 0.4 g/dL (0.4-0.6); GAMMA GLOBULINS SO 0.9 g/dL (0.8-1.7)
== END ==
LOC: M PLALAB 11:59
PROVIDERS: ATTEND Psychiatry & Neurology Neurology
DX: G62.9 Polyneuropathy, unspecified (principal); Z79.899 Other long term (current) drug therapy

== ENCOUNTER → 2024-11-10 | Outpatient (CLI) | payer MEDICARE ==
[~2024-11-10] MED LIST changes: -EQL50TAB2 PO; +VITA1TAB82 PO
== END ==
LOC: M WHC 13:02
PROVIDERS: ATTEND Physician Assistant Medical
DX: Z12.31 Encounter for screening mammogram for malignant neoplasm of breast (principal); Z13.820 Encounter for screening for osteoporosis; M81.0 Age-related osteoporosis without current pathological fracture; M85.89 Other specified disorders of bone density and structure, multiple sites; R92.333 Mammographic heterogeneous density, bilateral breasts

== ENCOUNTER 2025-02-06 12:42 | Inpatient (IN) | payer MEDICARE, OTHER ==
[~2025-02-06] VITALS: Ht 162.6 cm; Wt 68.0 kg
[~2025-02-06 12:42] MED LIST changes: -VALA500T5; +VALA500T5 PO
[2025-02-06] MEDS ORDERED: DOXY100C3 PO (13:08)
[2025-02-06] MEDS ORDERED: AMOX875T2 (13:08)
[2025-02-06] MEDS ORDERED: FLUO1OPD OD (13:10)
[2025-02-06] MEDS ORDERED: REFR0.5D8 OP (13:10)
[2025-02-06 17:33] LABS: BASO # 0.0 10^3/uL (0.0-0.2); BASO % 0.4 % (0.0-1.0); EOS # 0.0 10^3/uL (0.0-0.5); EOS % 0.0 % (0.0-3.0); LYMPH # 1.5 10^3/uL (1.5-5.0); LYMPH % 15.3 % (24.0-44.0); MONO # 1.1 10^3/uL (0.0-0.8); MONO % 11.7 % (2.0-8.0); NEUTROPHILS # 7.0 10^3/uL (1.5-8.5); NEUTROPHILS % 72.0 % (36.0-66.0); PLATELET COUNT, AUTOMATED 391 10^3/uL (150-450)
[2025-02-06 17:42] LABS: ALT/SGPT 40.0 U/L (7.0-40); AST/SGOT 43.0 U/L (<34); CALCIUM LEVEL 9.2 MG/DL (8.3-10.6); CARBON DIOXIDE LEVEL 29.0 MMOL/L (20-31); CHLORIDE LEVEL 101.0 MMOL/L (98-107); CREATININE FOR GFR 0.65 MG/DL (0.55-1.30); GLOMERULAR FILTRATION RATE 86.8 (>32); POTASSIUM SERUM 4.1 MMOL/L (3.5-5.1); SODIUM LEVEL 140.0 MMOL/L (136-145)
[2025-02-06] MEDS: ONDANSETRON 4MG/2ML VIAL IV ONE (17:45)
[2025-02-06 18:24] LABS: INR 1.05
[2025-02-06] MEDS ORDERED: ISOVUE-370 76% 100 ML VIAL As Ordered ONE (19:46)
[2025-02-06] MEDS ORDERED: VANCOMYCIN HCL 1,000 MG, VIAL MATE ADAPTER 1 EACH in NS 250 ML IV ONE (22:15)
[2025-02-06] MEDS: MAGNESIUM CITRATE 300 ML BTL PO ONE (23:05)
[2025-02-06] MEDS: PIPERACILLIN/TAZOBACTAM SOD 4.5 GM in DEXTROSE 5% (D5W) ADV/MINI-BAG 50 ML IV ONE (23:09)
[2025-02-06] MEDS ORDERED: NS (Normal Saline) 0.9% 1,000 ML IV SCH (23:20)
[2025-02-07] MEDS ORDERED: IPRATROPIUM 0.5 MG/ALBUTEROL 2.5 MG INH SOL UD 3 ML NEB PRN (00:15)
[2025-02-07] MEDS ORDERED: ONDANSETRON 4MG/2ML VIAL IV PRN (00:15)
[2025-02-07] MEDS ORDERED: MOM 30 ML SUSPENSION UDC PO PRN (00:15)
[2025-02-07] MEDS: DOXYCYCLINE HYCLATE 100 MG in DEXTROSE 5% (D5W) MINI-BAG PLU 100 ML IV ONE (01:26)
[2025-02-07] MEDS: NS (Normal Saline) 0.9% 1,000 ML IV SCH (01:26)
[2025-02-07] MEDS: PIPERACILLIN/TAZOBACTAM SOD 3.375 GM in DEXTROSE 5% (D5W) ADV/MINI-BAG 50 ML IV SCH (05:43)
[2025-02-07 09:01] LABS: BASO # 0.1 10^3/uL (0.0-0.2); BASO % 0.7 % (0.0-1.0); EOS # 0.0 10^3/uL (0.0-0.5); EOS % 0.0 % (0.0-3.0); LYMPH # 1.4 10^3/uL (1.5-5.0); LYMPH % 15.6 % (24.0-44.0); MONO # 0.9 10^3/uL (0.0-0.8); MONO % 10.0 % (2.0-8.0); NEUTROPHILS # 6.5 10^3/uL (1.5-8.5); NEUTROPHILS % 73.4 % (36.0-66.0); PLATELET COUNT, AUTOMATED 330 10^3/uL (150-450)
[2025-02-07] MEDS ORDERED: LANS15CA PO (09:03)
[2025-02-07] MEDS ORDERED: VITA200031 PO (09:03)
[2025-02-07] MEDS ORDERED: HOME MED LIST COMPLETE! XX SCH (09:05)
[2025-02-07 09:23] LABS: CALCIUM LEVEL 8.4 MG/DL (8.3-10.6); CARBON DIOXIDE LEVEL 25.0 MMOL/L (20-31); CHLORIDE LEVEL 104.0 MMOL/L (98-107); CREATININE FOR GFR 0.66 MG/DL (0.55-1.30); GLOMERULAR FILTRATION RATE 86.5 (>32); POTASSIUM SERUM 3.7 MMOL/L (3.5-5.1); SODIUM LEVEL 140.0 MMOL/L (136-145)
[2025-02-07] MEDS: PANTOPRAZOLE 40MG TAB PO SCH (09:37)
[2025-02-07] MEDS: SENNOSIDES/DOCUSATE SODIUM 8.6 MG/50MG TAB PO SCH (09:38)
[2025-02-07] MEDS: DOXYCYCLINE HYCLATE 100 MG in DEXTROSE 5% (D5W) MINI-BAG PLU 100 ML IV SCH (09:39)
[2025-02-07] MEDS: TIOTROPIUM BROM 2.5MCG/ACTUATION 4GM INH INH SCH (10:00)
[2025-02-07] MEDS: ENOXAPARIN 40 MG/0.4 ML SYRINGE (J1650 PER 10MG) SC SCH (10:00)
[2025-02-07] MEDS: SYMBICORT 160/4.5MCG INHALER 6GM INH SCH (10:01)
[2025-02-07 11:35] VITALS: O2SAT 95
[2025-02-07] MEDS: ALBUTEROL SULFATE 2.5 MG/0.5 ML INH CONCENTRATE NEB SOLN NEB SCH (11:38)
[2025-02-07] MEDS: FUROSEMIDE 40 MG/4 ML VIAL IV ONE (11:55)
[2025-02-07 14:28] VITALS: BP 121/57; TEMP 98; O2SAT 95
[2025-02-07 20:24] VITALS: BP 107/53; TEMP 98.7; O2SAT 89
[2025-02-07 22:20] VITALS: O2SAT 85
[2025-02-07 22:30] VITALS: O2SAT 90
[2025-02-08 04:35] VITALS: BP 117/76; TEMP 98; O2SAT 94
[2025-02-08 05:55] LABS: BASO # 0.0 10^3/uL (0.0-0.2); BASO % 0.0 % (0.0-1.0); EOS # 0.0 10^3/uL (0.0-0.5); EOS % 0.0 % (0.0-3.0); LYMPH # 1.1 10^3/uL (1.5-5.0); LYMPH % 10.6 % (24.0-44.0); MONO # 0.4 10^3/uL (0.0-0.8); MONO % 4.1 % (2.0-8.0); NEUTROPHILS # 8.4 10^3/uL (1.5-8.5); NEUTROPHILS % 84.8 % (36.0-66.0); PLATELET COUNT, AUTOMATED 407 10^3/uL (150-450)
[2025-02-08 06:30] LABS: ALT/SGPT 33.0 U/L (7.0-40); AST/SGOT 30.0 U/L (<34); CALCIUM LEVEL 9.0 MG/DL (8.3-10.6); CARBON DIOXIDE LEVEL 29.0 MMOL/L (20-31); CHLORIDE LEVEL 101.0 MMOL/L (98-107); CREATININE FOR GFR 0.74 MG/DL (0.55-1.30); GLOMERULAR FILTRATION RATE 79.7 (>32); MAGNESIUM LEVEL 2.0 MG/DL (1.8-2.4); POTASSIUM SERUM 3.9 MMOL/L (3.5-5.1); SODIUM LEVEL 141.0 MMOL/L (136-145)
[2025-02-08] MEDS: DOXYCYCLINE HYCLATE 100 MG TABLET PO SCH (08:50)
[2025-02-08] MEDS: SODIUM CHLORIDE HYPERTONIC 3% 4ML NEB SOL INH SCH (10:00)
[2025-02-08 12:00] VITALS: BP 111/82; TEMP 98.2; O2SAT 92
[2025-02-08 20:39] VITALS: BP 125/60; TEMP 98.7; O2SAT 94
[2025-02-08] MEDS: traZODone 50 MG TAB PO PRN (22:19)
[2025-02-09 03:21] VITALS: BP 146/78; TEMP 98.3; O2SAT 95
[2025-02-09] MEDS: ACETAMINOPHEN 325 MG TAB PO PRN (05:58)
[2025-02-09 06:28] LABS: CALCIUM LEVEL 8.5 MG/DL (8.3-10.6); CARBON DIOXIDE LEVEL 24.0 MMOL/L (20-31); CHLORIDE LEVEL 103.0 MMOL/L (98-107); CREATININE FOR GFR 0.68 MG/DL (0.55-1.30); GLOMERULAR FILTRATION RATE 85.8 (>32); POTASSIUM SERUM 3.9 MMOL/L (3.5-5.1); SODIUM LEVEL 142.0 MMOL/L (136-145)
[2025-02-09 06:58] LABS: BASO # 0.0 10^3/uL (0.0-0.2); BASO % 0.1 % (0.0-1.0); EOS # 0.0 10^3/uL (0.0-0.5); EOS % 0.0 % (0.0-3.0); LYMPH # 1.0 10^3/uL (1.5-5.0); LYMPH % 8.7 % (24.0-44.0); MONO # 0.6 10^3/uL (0.0-0.8); MONO % 5.1 % (2.0-8.0); NEUTROPHILS # 10.0 10^3/uL (1.5-8.5); NEUTROPHILS % 85.2 % (36.0-66.0); PLATELET COUNT, AUTOMATED 408 10^3/uL (150-450)
[2025-02-09] MEDS: VENLAFAXINE **XR** 75MG CAPSULE PO SCH (10:21)
[2025-02-09] MEDS: VENLAFAXINE **XR** 37.5 MG CAPSULE PO SCH (10:21)
[2025-02-09] MEDS: FLUOROMETHOLONE 0.1% OPHTH SUSP 5 ML BTL OD SCH (10:22)
[2025-02-09 12:00] VITALS: BP 133/60; TEMP 98.3; O2SAT 97
[2025-02-09] MEDS ORDERED: IPRATROPIUM 0.5 MG/ALBUTEROL 2.5 MG INH SOL UD 3 ML NEB PRN (13:55)
[2025-02-09] MEDS: ALBUTEROL SULFATE 2.5 MG/0.5 ML INH CONCENTRATE NEB SOLN NEB SCH (14:05)
[2025-02-09] MEDS: SODIUM CHLORIDE HYPERTONIC 3% 4ML NEB SOL INH SCH (14:05)
[2025-02-09 17:16] VITALS: O2SAT 91
[2025-02-09 20:23] VITALS: BP 138/56; TEMP 97.6; O2SAT 95
[2025-02-10 04:37] VITALS: BP 128/64; TEMP 97.9; O2SAT 97
[2025-02-10 07:11] LABS: BASO # 0.0 10^3/uL (0.0-0.2); BASO % 0.1 % (0.0-1.0); EOS # 0.0 10^3/uL (0.0-0.5); EOS % 0.0 % (0.0-3.0); LYMPH # 1.1 10^3/uL (1.5-5.0); LYMPH % 10.9 % (24.0-44.0); MONO # 0.5 10^3/uL (0.0-0.8); MONO % 5.1 % (2.0-8.0); NEUTROPHILS # 8.4 10^3/uL (1.5-8.5); NEUTROPHILS % 82.2 % (36.0-66.0); PLATELET COUNT, AUTOMATED 412 10^3/uL (150-450)
[2025-02-10 07:38] LABS: CALCIUM LEVEL 8.7 MG/DL (8.3-10.6); CARBON DIOXIDE LEVEL 28.0 MMOL/L (20-31); CHLORIDE LEVEL 103.0 MMOL/L (98-107); CREATININE FOR GFR 0.61 MG/DL (0.55-1.30); GLOMERULAR FILTRATION RATE 88.1 (>32); POTASSIUM SERUM 3.8 MMOL/L (3.5-5.1); SODIUM LEVEL 140.0 MMOL/L (136-145)
[2025-02-10] MEDS: FUROSEMIDE 40 MG/4 ML VIAL IV SCH (09:17)
[2025-02-10] MEDS: CEFPODOXIME PROXETIL 200 MG TABLET PO SCH (09:18)
[2025-02-10 12:00] VITALS: BP 130/63; TEMP 98.2; O2SAT 92
[2025-02-10 20:56] VITALS: BP 122/87; TEMP 98.1; O2SAT 91
[2025-02-11 04:51] VITALS: BP 153/67; TEMP 98.1; O2SAT 97
[2025-02-11 07:52] LABS: BASO # 0.0 10^3/uL (0.0-0.2); BASO % 0.3 % (0.0-1.0); EOS # 0.0 10^3/uL (0.0-0.5); EOS % 0.0 % (0.0-3.0); LYMPH # 2.3 10^3/uL (1.5-5.0); LYMPH % 23.3 % (24.0-44.0); MONO # 0.7 10^3/uL (0.0-0.8); MONO % 7.5 % (2.0-8.0); NEUTROPHILS # 6.6 10^3/uL (1.5-8.5); NEUTROPHILS % 67.8 % (36.0-66.0); PLATELET COUNT, AUTOMATED 423 10^3/uL (150-450)
[2025-02-11 08:15] LABS: CALCIUM LEVEL 8.8 MG/DL (8.3-10.6); CARBON DIOXIDE LEVEL 31.0 MMOL/L (20-31); CHLORIDE LEVEL 102.0 MMOL/L (98-107); CREATININE FOR GFR 0.65 MG/DL (0.55-1.30); GLOMERULAR FILTRATION RATE 86.8 (>32); POTASSIUM SERUM 3.6 MMOL/L (3.5-5.1); SODIUM LEVEL 143.0 MMOL/L (136-145)
[2025-02-11 11:09] VITALS: O2SAT 95
[2025-02-11 11:11] VITALS: O2SAT 94
[2025-02-11 12:00] VITALS: BP 103/57; TEMP 98.1
[2025-02-11 20:18] VITALS: BP 109/56; TEMP 97.4; O2SAT 91
[2025-02-12 04:46] VITALS: BP 148/67; TEMP 97.4; O2SAT 93
[2025-02-12 06:15] LABS: BASO # 0.1 10^3/uL (0.0-0.2); BASO % 0.4 % (0.0-1.0); EOS # 0.0 10^3/uL (0.0-0.5); EOS % 0.1 % (0.0-3.0); LYMPH # 2.6 10^3/uL (1.5-5.0); LYMPH % 21.7 % (24.0-44.0); MONO # 0.8 10^3/uL (0.0-0.8); MONO % 6.7 % (2.0-8.0); NEUTROPHILS # 8.5 10^3/uL (1.5-8.5); NEUTROPHILS % 69.9 % (36.0-66.0); PLATELET COUNT, AUTOMATED 432 10^3/uL (150-450)
[2025-02-12 06:40] LABS: CALCIUM LEVEL 8.5 MG/DL (8.3-10.6); CARBON DIOXIDE LEVEL 30.0 MMOL/L (20-31); CHLORIDE LEVEL 102.0 MMOL/L (98-107); CREATININE FOR GFR 0.69 MG/DL (0.55-1.30); GLOMERULAR FILTRATION RATE 85.5 (>32); POTASSIUM SERUM 3.5 MMOL/L (3.5-5.1); SODIUM LEVEL 143.0 MMOL/L (136-145)
[2025-02-12 09:02] VITALS: BP 145/67
[2025-02-12] MEDS ORDERED: ALB2.5NEB NEB (09:45)
[2025-02-12] MEDS ORDERED: SODI3NEB3 INH (09:45)
[2025-02-12] MEDS ORDERED: PRED10TA2 PO (09:45)
== END 2025-02-12 11:35 | disposition home or self-care (01) | DRG 194 ==
LOC: M ED 12:42 → M ED INP 02-07 00:14 → M MSPAV 02-07 14:16
PROVIDERS: ADMIT Internal Medicine; ATTEND Internal Medicine Nephrology
DX: J18.9 Pneumonia, unspecified organism (principal); J44.1 Chronic obstructive pulmonary disease with (acute) exacerbation; J44.0 Chronic obstructive pulmonary disease with (acute) lower respiratory infection; J47.0 Bronchiectasis with acute lower respiratory infection; J96.11 Chronic respiratory failure with hypoxia; K59.00 Constipation, unspecified; R11.2 Nausea with vomiting, unspecified; R51.9 Headache, unspecified; K21.9 Gastro-esophageal reflux disease without esophagitis; F32.A Depression, unspecified; Z99.81 Dependence on supplemental oxygen; Z87.891 Personal history of nicotine dependence; Z85.118 Personal history of other malignant neoplasm of bronchus and lung; Z85.038 Personal history of other malignant neoplasm of large intestine; Z79.899 Other long term (current) drug therapy; Z88.2 Allergy status to sulfonamides; Z92.21 Personal history of antineoplastic chemotherapy; Z92.25 Personal history of immunosuppression therapy

== ENCOUNTER → 2025-03-03 | Outpatient (CLI) | payer MEDICARE ==
[~2025-03-03] MED LIST changes: +ALB2.5NEB NEB; +AMOX875T2; +DOXY100C3 PO; +FLUO1OPD OD; +LANS15CA PO; +PRED10TA2 PO; +REFR0.5D8 OP; +SODI3NEB3 INH; +VITA200031 PO
== END ==
LOC: M PLARAD 11:13
PROVIDERS: ATTEND Physician Assistant Medical
DX: R26.89 Other abnormalities of gait and mobility (principal); R41.81 Age-related cognitive decline

== ENCOUNTER → 2025-03-13 | Outpatient (CLI) | payer MEDICARE | LOC: M RAD 14:13 | PROVIDERS: ATTEND Internal Medicine Pulmonary Disease | DX: R91.8 Other nonspecific abnormal finding of lung field (principal) ==